=== PATIENT | male | born 2005 | race African-American/Black ===

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

== ENCOUNTER 2024-01-20 16:08 | Emergency (ER) | payer OTHER ==
[~2024-01-20] VITALS: Ht 177.8 cm; Wt 80.0 kg
[2024-01-20 16:14] VITALS: BP 115/69; PULSE 68; O2SAT 98
[2024-01-20] MEDS: TETANUS, DIPHTHERIA, PERTUSSIS VAC/PF 0.5ML (>10YR OLD) IM ONE (17:42)
[2024-01-20] MEDS: LIDOCAINE HCL/PF 1% 10 MG/ML 5ML VIAL INFIL ONE (17:43)
[2024-01-20] MEDS: BACITRACIN ZINC OINT UDPKT TOP ONE (17:44)
[2024-01-20 18:15] VITALS: RESP 16
[2024-01-20] MEDS ORDERED: AMOX1TAB16 MT (18:25)
== END 2024-01-20 18:45 | disposition home or self-care (01) ==
LOC: ER 16:08
DX: S61.412A Laceration without foreign body of left hand, initial encounter (principal); F12.10 Cannabis abuse, uncomplicated; Z79.899 Other long term (current) drug therapy; X58.XXXA Exposure to other specified factors, initial encounter; Y93.89 Activity, other specified; Y92.89 Other specified places as the place of occurrence of the external cause; Y99.8 Other external cause status
CPT/HCPCS: 90715; 12004; 90471; 99283; J3490; Z7610 ×2

== ENCOUNTER 2024-01-21 09:40 | Emergency (ER) | payer OTHER ==
[~2024-01-21] VITALS: Ht 172.7 cm; Wt 60.0 kg
[~2024-01-21 09:40] MED LIST changes: +AMOX1TAB16 MT
[2024-01-21 09:44] VITALS: O2SAT 100
[2024-01-21 10:06] VITALS: BP 102/55; PULSE 62; RESP 16; TEMP 36.89184; O2SAT 100
[2024-01-21] MEDS: DIVALPROEX SODIUM 500MG DR TABLET PO ONE (10:30)
[2024-01-21] MEDS: LEVETIRACETAM 500MG/5ML CUP PO ONE (10:30)
== END 2024-01-21 10:30 ==
LOC: ER 09:40
DX: G40.909 Epilepsy, unspecified, not intractable, without status epilepticus (principal); Z79.899 Other long term (current) drug therapy
CPT/HCPCS: 99283; Z7610 ×3

== ENCOUNTER 2024-03-26 11:33 | Emergency (ER) | payer BC, OTHER ==
[~2024-03-26] VITALS: Ht 175.3 cm; Wt 78.0 kg
[2024-03-26 11:40] VITALS: TEMP 98.4; O2SAT 99
[2024-03-26] MEDS: SODIUM CHLORIDE 0.9% 1,000 ML IV ONE (12:22)
[2024-03-26] MEDS: LEVETIRACETAM 1000MG PREMIX 100 ML IV ONE (12:22)
[2024-03-26] MEDS: HALOPERIDOL LACTATE 5MG/ML VIAL IM ONE (12:24)
[2024-03-26 12:41] LABS: BASOPHILS % 0.3 % (0.0-2.0); EOSINOPHILS % 0.7 % (0.0-5.0); HEMATOCRIT. 42.4 % (42.0-52.0); HEMOGLOBIN. 13.6 g/dL (14.0-18.0); LYMPHOCYTES % 46.1 % (20.0-50.0); MEAN CORPUSCULAR HEMOGLOBIN 29.1 pg (28.0-32.0); MEAN PLATELET VOLUME 8.5 fl (7.4-10.4); MONOCYTES % 10.9 % (2.0-8.0); PLATELET 238 x1000/uL (130-400); RED BLOOD CELL COUNT 4.67 mill/uL (4.7-6.1); RED CELL DISTRIBUTION WIDTH 13.8 % (11.6-14.6); WHITE BLOOD COUNT 6.5 x1000/uL (4.5-11.0)
[2024-03-26 12:51] LABS: CARBON DIOXIDE 22 mEq/L (21-32); CHLORIDE 107 mEq/L (98-107); POTASSIUM 3.9 mEq/L (3.5-5.1); SODIUM 140 mEq/L (136-145)
[2024-03-26 12:52] LABS: CALCIUM 9.3 mg/dL (8.7-10.4)
[2024-03-26 12:57] LABS: GLUCOSE 112 mg/dL (70-105); UREA NITROGEN BLOOD 10 mg/dL (9-23)
[2024-03-26 13:21] LABS: ETHANOL BLOOD < 10 mg/dL (<10)
[2024-03-26 16:00] VITALS: BP 99/63; PULSE 82; RESP 19; O2SAT 99
== END 2024-03-26 16:10 | disposition home or self-care (01) ==
LOC: ER 11:33
DX: R56.9 Unspecified convulsions (principal); Z79.899 Other long term (current) drug therapy
CPT/HCPCS: 80048; 80320; 85025; 36415; 96365; 96372; 99284; J1953; J1630; J7030; Z7610 ×2; A4606; G0480

== ENCOUNTER 2024-09-09 14:20 | Emergency (ER) | payer MEDICAID ==
[~2024-09-09] VITALS: Ht 175.3 cm; Wt 78.0 kg
[~2024-09-09 14:20] MED LIST changes: +LEVE100023 PO; -LEVE10006 PO
[2024-09-09 14:23] VITALS: O2SAT 97
[2024-09-09 14:50] LABS: BASOPHILS % 0.2 % (0.0-2.0); EOSINOPHILS % 1.2 % (0.0-5.0); HEMATOCRIT. 45.2 % (42.0-52.0); HEMOGLOBIN. 14.1 g/dL (14.0-18.0); LYMPHOCYTES % 46.0 % (20.0-50.0); MEAN PLATELET VOLUME 8.8 fl (7.4-10.4); MONOCYTES % 9.9 % (2.0-8.0); NEUTROPHILS % 42.7 % (40.0-76.0); PLATELET 215 x1000/uL (130-400); RED BLOOD CELL COUNT 4.89 mill/uL (4.7-6.1); RED CELL DISTRIBUTION WIDTH 13.6 % (11.6-14.6)
[2024-09-09] MEDS: LEVETIRACETAM 1000MG PREMIX 100 ML IV ONE (14:59)
[2024-09-09] MEDS: ONDANSETRON HCL 4MG/2ML INJ IV STA (14:59)
[2024-09-09] MEDS: SODIUM CHLORIDE 0.9% 1,000 ML IV ONE (15:00)
[2024-09-09 15:03] LABS: CREATININE 1.0 mg/dL (0.6-1.3); ETHANOL BLOOD < 10 mg/dL (<10); UREA NITROGEN BLOOD 9 mg/dL (9-23)
[2024-09-09 19:30] VITALS: BP 125/65; PULSE 70; RESP 16; TEMP 37; O2SAT 97
== END 2024-09-09 20:18 | disposition home or self-care (01) ==
LOC: ER 14:30
DX: G40.909 Epilepsy, unspecified, not intractable, without status epilepticus (principal); Z79.899 Other long term (current) drug therapy
CPT/HCPCS: 80048; 80320; 85025; 36415; 71045; 96365; 96375; 99284; J1953; J2405; J7030; Z7610 ×2; G0480

== ENCOUNTER 2024-12-31 15:03 | Inpatient (IN) | payer MEDICAID ==
[~2024-12-31] VITALS: Ht 177.8 cm; Wt 69.9 kg
[~2024-12-31 15:03] MED LIST changes: +DIVA-131 PO; -DIVA-75 PO; +LACO100T4 PO
[2024-12-31 15:06] VITALS: O2SAT 99
[2024-12-31] MEDS ORDERED: VALPROATE SODIUM IV ONE (15:15)
[2024-12-31] MEDS ORDERED: SODIUM CHLORIDE 0.9% IV ONE (15:15)
[2024-12-31] MEDS ORDERED: LEVETIRACETAM 1,000MG in NACL 100ML PREMIX IV ONE (15:30)
[2024-12-31 16:01] LABS: BASOPHILS % 0.2 % (0.0-2.0); EOSINOPHILS % 2.2 % (0.0-5.0); HEMATOCRIT. 39.8 % (42.0-52.0); HEMOGLOBIN. 12.6 g/dL (14.0-18.0); LYMPHOCYTES % 16.6 % (20.0-50.0); MEAN PLATELET VOLUME 8.7 fl (7.4-10.4); MONOCYTES % 7.8 % (2.0-8.0); NEUTROPHILS % 73.2 % (40.0-76.0); PLATELET 171 x1000/uL (130-400); RED BLOOD CELL COUNT 4.43 mill/uL (4.7-6.1); RED CELL DISTRIBUTION WIDTH 14.1 % (11.6-14.6)
[2024-12-31] MEDS: LEVETIRACETAM 1000MG PREMIX 100 ML IV NR (16:09)
[2024-12-31 16:16] LABS: CREATININE 1.0 mg/dL (0.6-1.3)
[2024-12-31 16:17] LABS: UREA NITROGEN BLOOD 7 mg/dL (9-23)
[2024-12-31 16:18] LABS: ASPARTATE AMINOTRANSFERASE 11 IU/L (<34)
[2024-12-31 16:19] LABS: BILIRUBIN DIRECT 0.3 mg/dL (<=3.0); BILIRUBIN TOTAL 0.7 mg/dL (0.1-1.0); PROTEIN TOTAL 7.4 g/dL (6.0-8.3)
[2024-12-31] MEDS: LORAZEPAM 2MG/ML UD SYRINGE IV NR (16:30)
[2024-12-31 17:00] LABS: *AMPHETAMINES SCREEN URINE NEGATIVE (NEGATIVE); *BARBITURATES SCREEN URINE NEGATIVE (NEGATIVE); *BENZODIAZEPINES SCREEN URINE PRESUMPTIVE POSITIVE (NEGATIVE); *COCAINE SCREEN URINE NEGATIVE (NEGATIVE); CANNABINOID URINE SCREEN PRESUMPTIVE POSITIVE (NEGATIVE); ECSTASY MDMA SCREEN URINE NEGATIVE (NEGATIVE); METHADONE URINE SCREEN NEGATIVE (NEGATIVE); OPIATES URINE SCREEN NEGATIVE (NEGATIVE); PHENCYCLIDINE URINE SCREEN NEGATIVE (NEGATIVE)
[2024-12-31 17:03] LABS: CLARITY URINE CLEAR (CLEAR); COLOR URINE YELLOW (YELLOW); GLUCOSE URINE NEGATIVE (NEGATIVE); KETONES URINE NEGATIVE (NEGATIVE); LEUKOCYTE ESTERASE URINE NEGATIVE (NEGATIVE); NITRITE URINE NEGATIVE (NEGATIVE); OCCULT BLOOD URINE NEGATIVE (NEGATIVE); PH URINE 5.0 (4.5-8.0); PROTEIN URINE 1+ (NEGATIVE); SPECIFIC GRAVITY URINE 1.016 (1.005-1.030); UROBILINOGEN URINE 0.2 E.U./dL (0.2-1.0)
[2024-12-31 17:24] LABS: BACTERIA URINE 1+; RBC URINE NONE SEEN /hpf (0-2); SQUAMOUS EPITHELIAL CELL URINE RARE /lpf (RARE/1+); WBC URINE 0-2 /hpf (0-2)
[2024-12-31] MEDS: MAGNESIUM 2 G PREMIX 50 ML IV ONE (18:03)
[2024-12-31] MEDS ORDERED: DOCUSATE SODIUM 100MG CAPSULE PO PRN (22:30)
[2024-12-31] MEDS ORDERED: CLONIDINE 0.1MG TABLET PO PRN (22:30)
[2024-12-31] MEDS ORDERED: POTASSIUM CHLORIDE 20MEQ TABLET SR PO PRN (22:30)
[2024-12-31] MEDS ORDERED: MAGNESIUM/ALUMINUM HYDROXIDE/SIMETHICONE 30ML UDC PO PRN (22:30)
[2024-12-31] MEDS ORDERED: ONDANSETRON HCL 4MG/2ML INJ IV PRN (22:30)
[2024-12-31] MEDS ORDERED: IPRATROPIUM/ALBUTEROL 0.5-3(2.5)MG/3ML NEB HHN PRN (22:30)
[2024-12-31] MEDS ORDERED: HYDROCODONE/ACETAMINOPHEN 5/325MG TABLET PO PRN (22:30)
[2024-12-31] MEDS ORDERED: LORAZEPAM 2MG/ML UD SYRINGE IV PRN (22:30)
[2024-12-31] MEDS ORDERED: ACETAMINOPHEN 325MG TABLET PO PRN (22:30)
[2025-01-01] VITALS: BP 95/51; PULSE 73; RESP 20; TEMP 36.4; O2SAT 97
[2025-01-01 02:45] VITALS: BP 95/51; PULSE 78; RESP 20; TEMP 36.1956
[2025-01-01 04:00] VITALS: BP 110/61; PULSE 69; RESP 20; TEMP 36.2; O2SAT 98
[2025-01-01] MEDS ORDERED: LEVETIRACETAM 500MG PREMIX 100 ML IV SCH (09:00)
[2025-01-01] MEDS ORDERED: ENOXAPARIN 40MG/0.4ML SYR SUBCUT SCH (09:00)
[2025-01-01] MEDS ORDERED: LEVETIRACETAM 500MG in NACL 100ML PREMIX IV SCH (09:00)
== END 2025-01-01 07:37 | disposition left against medical advice (07) | DRG 53 ==
LOC: ER 15:03 → 8WST 17:13 → EDBEDREQ 17:17 → EDBEDREQTM 17:17 → ENRESERV 21:18
PROVIDERS: ADMIT Family Medicine Adult Medicine; ATTEND Family Medicine Adult Medicine
DX: G40.901 Epilepsy, unspecified, not intractable, with status epilepticus (principal); F12.10 Cannabis abuse, uncomplicated; Z53.29 Procedure and treatment not carried out because of patient's decision for other reasons; Z79.899 Other long term (current) drug therapy
CPT/HCPCS: 36415; 80048; 80076; 80305; 80320; 81003; 83735; 85025; 93005; 99291; A4606; J1953; J2060; J3475; J3490; J7050; J7060; G0480